=== PATIENT | female | born 2000 | race Caucasian/White ===

== ENCOUNTER 2019-01-09 15:47 | Emergency (ER) | payer MEDICAID ==
[~2019-01-09] VITALS: Ht 165.1 cm; Wt 82.0 kg
[2019-01-09] MEDS ORDERED: IBUPROFEN 600MG TABLET PO ONE (16:30)
[2019-01-09 18:45] VITALS: BP 135/80
== END 2019-01-09 18:40 | disposition home or self-care (01) ==
LOC: ER 15:47
DX: S70.02XA Contusion of left hip, initial encounter (principal); V03.19XA Pedestrian with other conveyance injured in collision with car, pick-up truck or van in traffic accident, initial encounter; Y93.89 Activity, other specified; Y92.89 Other specified places as the place of occurrence of the external cause; Y99.8 Other external cause status
CPT/HCPCS: 73090; 73552; 99283

== ENCOUNTER 2022-05-08 16:12 | Emergency (ER) | payer MEDICAID, OTHER ==
[~2022-05-08] VITALS: Ht 167.6 cm; Wt 106.0 kg
[2022-05-08] MEDS ORDERED: ACETAMINOPHEN 325MG TABLET PO ONE (19:30)
[2022-05-08 19:57] VITALS: BP 122/72
[2022-05-08] MEDS ORDERED: IBUP-2028 MT (20:41)
== END 2022-05-08 21:05 | disposition home or self-care (01) ==
LOC: ER 16:12
DX: J02.9 Acute pharyngitis, unspecified (principal); B34.9 Viral infection, unspecified; R50.9 Fever, unspecified
CPT/HCPCS: 81025; 87070; 87430; 99283